=== PATIENT | male | born 1990 | race Caucasian/White ===

== ENCOUNTER → 2017-06-25 | Outpatient (CLI) | payer BC, OTHER ==
[~2017-06-25] MED LIST: LORT5TAB PO; NO MEDS AT HOME
--- NOTE | 2017-06-25 12:09 | REP ---
Clinical: Pectus carinatum. Comparison: 01/10/2015 . Technique: PA and lateral. Findings: The mediastinum and cardiac silhouette are relatively normal. Lateral view demonstrates a mild outward angulation to the sternum which may be related to the patient's history of pectus carinatum, but without other obvious sternal osseous or surrounding soft tissue abnormality noted. The lung lorenz are clear and without acute consolidation, effusion, or pneumothorax. The skeletal structures are intact and normal. Impression: 1. No acute cardiopulmonary process. Signed by Jose Villavicencio MD 06/25/2017 12:00 P
== END ==
LOC: M WUC 11:09
PROVIDERS: ATTEND Nurse Practitioner Family
DX: Q67.7 Pectus carinatum (principal)

== ENCOUNTER → 2025-09-11 | Outpatient (REF) | payer BC, OTHER ==
[2025-09-11 18:34] LABS: C REACTIVE PROTEIN QUANTITATIV 0.67 MG/DL (<1.0)
[2025-09-11 18:36] LABS: RHEUMATOID FACTOR QUANT < 3.5 IU/ML (<14)
== END ==
LOC: M LAB REF 17:17
PROVIDERS: ATTEND Internal Medicine
DX: M13.0 Polyarthritis, unspecified (principal)